=== PATIENT | female | born 1995 | race Caucasian/White ===

== ENCOUNTER 2025-06-14 17:51 | Emergency (ER) | payer MEDICAID, SELFPAY ==
[2025-06-14 17:51] VITALS: BMI 42.5
--- NOTE | 2025-06-14 19:02 | XR_ITS ---
Examination: Abdomen sonogram, Limited Date and time of exam: June 14, 2025, 1908 hours INDICATIONS: Right upper abdominal pain and nausea beginning today. Technique: Real-time serrano scale transabdominal sonographic images of the upper abdomen obtained. Findings: Cholelithiasis. Gallbladder wall 0.38 cm no edema Common bile ducts 0.2 cm Pancreatic head 2.5 cm Liver 16.3 cm fatty infiltration. Normal hepatopedal portal venous flow Patent IVC IMPRESSION: Cholelithiasis. Borderline thickening gallbladder wall, clinical correlation advised, if there is clinical suspicion of cholecystitis, recommend HIDA scan or MRCP follow-up
--- NOTE | 2025-06-14 19:02 | XR_ITS ---
Examination: PA chest single view TECHNIQUE: Upright PA chest single view Date and time: June 14, 2025, 1910 hours INDICATIONS: Onset chest pain today. FINDINGS: Normal heart size. Lungs are clear. The osseous structures are intact. IMPRESSION: No active disease.
--- NOTE | 2025-06-14 19:02 | EKG_ITS ---
[facility] Test Date: 2025-06-14 Pat Name: YURY ÁLVAREZ Department: Room: - Gender: Female [employer]: : 1995 Requested By: Jean Rodriguez Order Number: [id number] Reading MD: Jean Rodriguez Measurements Intervals [place] Rate: 76 P: 46 WI: 155 QRS: 28 QRSD: 99 T: 32 QT: 361 QTc: 408 Interpretive Statements SINUS RHYTHM WITH SINUS ARRHYTHMIA POSSIBLE RIGHT VENTRICULAR CONDUCTION DELAY [RSR (QR) IN V1/V2] No previous ECG available for comparison /[id number]
[2025-06-14 19:31] VITALS: BP 138/72; PULSE 88; RESP 18; TEMP 36.9; O2SAT 96
[2025-06-14 19:47] LABS: Basophils # (Auto) 0.0 Thou/mm3 (0.0-0.2); Basophils % (Auto) 0 % (0-2.5); Eosinophils # (Auto) 0.1 Thou/mm3 (0.0-0.5); Eosinophils % (Auto) 1 % (0-10); Hematocrit 41.3 % (36.0-46.0); Hemoglobin 14.0 g/dL (12.0-16.0); Immature Granulocytes Auto 0.02 Thou/mm3 (0.00-0.00); Lymphocytes # (Auto) 3.7 Thou/mm3 (1.0-4.8); Lymphocytes % (Auto) 34 % (10-50); Mean Corpuscular HGB Conc 33.9 g/dl (31.0-37.0); Mean Corpuscular Hemoglobin 29.2 pg (25.0-35.0); Mean Corpuscular Volume 86 fL (80-100); Monocytes # (Auto) 0.9 Thou/mm3 (0.0-0.8); Monocytes % (Auto) 8 % (0-12); Neutrophils # (Auto) 6.3 Thou/mm3 (1.8-7.7); Neutrophils % (Auto) 57 % (37-80); Nucleated Red Blood Cell # 0.00 Thou/mm3 (0.00-0.00); Nucleated Red Blood Cell % 0 /100 WBC (0); Platelet Count 248 Thou/mm3 (140-440); RDW Standard Deviation 42.5 fL (36.4-46.3); Red Blood Count 4.79 Miln/mm3 (4.00-5.20); White Blood Count 11.0 Thou/mm3 (3.6-11.0)
[2025-06-14 20:06] LABS: B-Type Natriuretic Peptide < 20 pg/mL (0-100)
[2025-06-14 20:08] LABS: Alanine Aminotransferase 75 U/L (10-49); Albumin, Serum 5.2 gm/dL (3.5-5.0); Albumin/Globulin Ratio 1.7 (1.2-2.2); Alkaline Phosphatase 110 U/L (46-116); Anion Gap 12 (7-16); Aspartate Amino Transferase 58 U/L (0-34); BUN/Creatinine Ratio 15 Ratio (12-20); Bilirubin,Total 0.7 mg/dL (0.3-1.2); Blood Urea Nitrogen 12 mg/dL (9-23); Calcium 10.7 mg/dL (8.3-10.6); Calcium (Corrected) 10.7 mg/dL (8.5-10.1); Carbon Dioxide 26.9 mMol/L (20.0-31.0); Chloride 104 mMol/L (98-107); Creatinine (Component) 0.8 mg/dL (0.6-1.3); Estimated Creatinine Clearance 132.5 mL/min (>60); Globulin 3.0 gm/dL (2.3-3.5); Glucose 91 mg/dL (74-106); Lipase 41 U/L (12-53); Osmolality,Calculated 284 (275-295); Potassium 3.7 mMol/L (3.4-5.1); Sodium 143 mMol/L (136-145); Total Protein 8.2 gm/dL (5.7-8.2); Troponin I < 0.020 ng/mL (0.0-0.045); eGFR > 60 See Note
[2025-06-14 20:35] LABS: Collection Type, Urine Clean Catch
[2025-06-14 20:45] LABS: HCG Qualitative,Urine Negative
[2025-06-14 20:52] LABS: Amorphous Crystals,Urine Present (Absent); Bilirubin,Urine Negative (Negative); Blood,Urine Negative (Negative); Clarity,Urine Turbid (Clear/Hazy); Color,Urine Yellow (Lt Yel-Yel); Glucose, Urine Negative (Negative); Ketones,Urine 3+ (Negative); Leukocyte Esterase,Urine Positive (Negative); Nitrite,Urine Negative (Negative); PH,Urine 6.0 (5.0-7.0); Protein,Urine Trace (Neg - Trace); RBC,Urine 1 /hpf (0-3); Specific Gravity,Urine 1.032 (1.001-1.035); Squamous Epithelial Cell,Urine 19 /hpf (0-5); Urobilinogen,Urine Negative mg/dL (0.0-1.0); WBC,Urine 11 /hpf (0-5)
--- NOTE | 2025-06-14 22:00 | PD.EDRME ---
Rapid Medical Screening Exam RME Arrival date/time: 06/14/25 17:51 This is a case of 30-year-old female with no medical history came into the emergency room due to abdominal pain and chest pain for 3 days worsening symptoms thus patient decided to sought consult here in the emergency room Chief Complaint: Abdominal Pain Time Seen by Provider: 06/14/25 18:26 Vital signs: Vital Signs Temperature 98.4 F 06/14/25 19:31 Pulse Rate 88 06/14/25 19:31 Respiratory Rate 18 06/14/25 19:31 Blood Pressure 138/72 H 06/14/25 19:31 Pulse Oximetry (%) 96 06/14/25 19:31 Oxygen Delivery Method Room Air 06/14/25 19:31
--- NOTE | 2025-06-14 22:35 | PC.NURSE ---
CALLED PT IN ER LOBBY AND OUTSIDE OF ER AND NO ANSWER
--- NOTE | 2025-06-14 22:40 | PC.NURSE ---
CALLED PT IN ER LOBBY AND OUTSIDE OF ER AND NO ANSWER
--- NOTE | 2025-06-14 22:45 | PC.NURSE ---
CALLED PT IN LOBBY AND NO ANSWER.
== END 2025-06-14 22:46 | disposition left against medical advice (07) ==
PROVIDERS: Emergency Provider Nurse Practitioner Family; PCP Family Medicine
DX: R10.11 Right upper quadrant pain (principal); R07.9 Chest pain, unspecified; R11.0 Nausea; I49.8 Other specified cardiac arrhythmias; R94.31 Abnormal electrocardiogram [ECG] [EKG]
CPT/HCPCS: 36415; 71045; 76705; 80053; 81001; 81025; 83690; 83880; 84484; 85025; 93005; 99283